=== PATIENT | male | born 1975 | race Caucasian/White ===

== ENCOUNTER → 2017-05-09 08:17 | Outpatient (CLI) | payer OTHER | END | disposition home or self-care (01) | LOC: D.CT 08:17 | DX: R79.89 Other specified abnormal findings of blood chemistry (principal); R74.8 Abnormal levels of other serum enzymes ==

== ENCOUNTER → 2017-06-21 08:26 | Outpatient (CLI) | payer OTHER | END | disposition home or self-care (01) | LOC: D.NM 08:26 | DX: R10.9 Unspecified abdominal pain (principal) ==